=== PATIENT | female | born 1940 | race Caucasian/White ===

== ENCOUNTER 2018-06-23 18:02 | Inpatient (IN) | payer MEDICARE, MEDICAID ==
[~2018-06-23] VITALS: Ht 160 cm; Wt 91.2 kg
[2018-06-23] MEDS ORDERED: SODIUM CHLORIDE 0.9% 1,000 ML IV ONE (18:58)
[2018-06-23] MEDS ORDERED: ONDANSETRON HCL 4MG/2ML VIAL IV ONE (19:00)
[2018-06-23 19:55] LABS: CLARITY URINE CLEAR (CLEAR); COLOR URINE YELLOW (YELLOW); KETONES URINE NEGATIVE (NEGATIVE); LEUKOCYTE ESTERASE URINE TRACE (NEGATIVE); NITRITE URINE NEGATIVE (NEGATIVE); OCCULT BLOOD URINE NEGATIVE (NEGATIVE); PROTEIN URINE NEGATIVE (NEGATIVE); SPECIFIC GRAVITY URINE 1.008 (1.005-1.030); UROBILINOGEN URINE 0.2 E.U./dL (0.2-1.0)
[2018-06-23 19:56] LABS: BASOPHILS % 0.5 % (0.0-2.0); EOSINOPHILS % 0.2 % (0.0-5.0); HEMATOCRIT. 30.1 % (36.0-48.0); HEMOGLOBIN. 10.2 g/dL (12.0-16.0); LYMPHOCYTES % 23.3 % (20.0-50.0); MEAN CORPUSCULAR HEMOGLOBIN 32.6 pg (28.0-32.0); MEAN CORPUSCULAR VOLUME 95.9 fL (81.0-99.0); MEAN PLATELET VOLUME 8.3 fl (7.4-10.4); MONOCYTES % 10.5 % (2.0-8.0); NEUTROPHILS % 65.5 % (40.0-76.0); PLATELET 248 x1000/uL (130-400); RED BLOOD CELL COUNT 3.14 mill/uL (4.2-5.4); RED CELL DISTRIBUTION WIDTH 17.5 % (11.6-14.6)
[2018-06-23 20:01] LABS: CHLORIDE 90 mEq/L (98-107)
[2018-06-23 20:04] LABS: INR 1.2; PARTIAL THROMBOPLASTIN TIME 27.2 sec (23.4-31.0); PROTHROMBIN TIME 11.8 sec (9.1-11.1)
[2018-06-23] MEDS ORDERED: ASPIRIN 81MG TABLET PO ONE (20:30)
[2018-06-23] MEDS ORDERED: FUROSEMIDE 40MG/4ML VIAL IV ONE (20:30)
[2018-06-23] MEDS ORDERED: NITROGLYCERIN OINT 1GM/INCH UDPKT TD ONE (20:30)
[2018-06-23] MEDS ORDERED: DEXT 5%/0.45% NACL 1000ML 1,000 ML IV SCH (23:31)
[2018-06-23 23:40] VITALS: BP 105/62
[2018-06-23] MEDS ORDERED: ONDANSETRON HCL 4MG/2ML VIAL IV PRN (23:45)
[2018-06-23] MEDS ORDERED: DIPHENHYDRAMINE 50MG/ML VIAL IV PRN (23:45)
[2018-06-23] MEDS ORDERED: HYDROMORPHONE HCL/PF 2MG/ML CPJ IV PRN (23:45)
[2018-06-24] VITALS (8 sets, daily range): BP systolic 92–151; BP diastolic 48–89
[2018-06-24] MEDS: SODIUM CHLORIDE 0.9% 1,000 ML IV SCH ×2 (01:24→16:58)
[2018-06-24 06:42] LABS: BASOPHILS % 0.3 % (0.0-2.0); EOSINOPHILS % 0.4 % (0.0-5.0); HEMATOCRIT. 30.2 % (36.0-48.0); HEMOGLOBIN. 10.4 g/dL (12.0-16.0); LYMPHOCYTES % 20.1 % (20.0-50.0); MEAN CORPUSCULAR HEMOGLOBIN 33.1 pg (28.0-32.0); MEAN CORPUSCULAR VOLUME 96.6 fL (81.0-99.0); MEAN PLATELET VOLUME 8.5 fl (7.4-10.4); MONOCYTES % 13.1 % (2.0-8.0); NEUTROPHILS % 66.1 % (40.0-76.0); PLATELET 252 x1000/uL (130-400); RED BLOOD CELL COUNT 3.13 mill/uL (4.2-5.4); RED CELL DISTRIBUTION WIDTH 17.2 % (11.6-14.6)
[2018-06-24] MEDS ORDERED: LEVOFLOXACIN 500MG PREMIX 100 ML IV NR (07:00)
[2018-06-24 08:30] LABS: PHOSPHORUS 3.8 mg/dL (2.5-4.9)
[2018-06-24] MEDS ORDERED: ENOXAPARIN 40MG/0.4ML SYR SUBCUT SCH (09:00)
[2018-06-24] MEDS: ENOXAPARIN 30MG/0.3ML SYR SUBCUT SCH ×2 (09:00→21:51)
[2018-06-24] MEDS: ONDANSETRON HCL 4MG/2ML VIAL IV PRN ×2 (12:06→18:35)
[2018-06-24] MEDS ORDERED: METF-815 PO (16:18)
[2018-06-24] MEDS ORDERED: TRAM50TA3 PO (16:18)
[2018-06-24] MEDS ORDERED: FLUO90CA4 PO (16:18)
[2018-06-24] MEDS ORDERED: ATEN50TA PO (16:18)
[2018-06-24] MEDS ORDERED: METO5TAB2 PO (16:18)
[2018-06-24] MEDS ORDERED: GABA-531 PO (16:18)
[2018-06-24] MEDS ORDERED: ESOM40CA53 PO (16:18)
[2018-06-24] MEDS ORDERED: ACYC200C PO (16:18)
[2018-06-24] MEDS ORDERED: CHLO25TA2 PO (16:18)
[2018-06-24] MEDS ORDERED: PIOG30TA70 PO (16:18)
[2018-06-24] MEDS ORDERED: ACETAMINOPHEN 325MG TABLET PO PRN (17:15)
[2018-06-25] VITALS: BP 126/73
[2018-06-25 04:00] VITALS: BP 119/73
[2018-06-25] MEDS: LEVOFLOXACIN 250MG PREMIX 50 ML IV SCH (06:35)
[2018-06-25 08:00] VITALS: BP 131/62
[2018-06-25 09:23] LABS: HEMATOCRIT 31.1 % (36.0-48.0); HEMOGLOBIN 10.6 g/dL (12.0-16.0); MEAN CORPUSCULAR HEMOGLOBIN 32.9 pg (28.0-32.0); MEAN CORPUSCULAR VOLUME 96.4 fL (81.0-99.0); PLATELET 252 x1000/uL (130-400); RED BLOOD CELL COUNT 3.23 mill/uL (4.2-5.4); RED CELL DISTRIBUTION WIDTH 17.2 % (11.6-14.6)
[2018-06-25] MEDS: AMLODIPINE 5MG TABLET PO SCH (09:38)
[2018-06-25] MEDS: ENOXAPARIN 30MG/0.3ML SYR SUBCUT SCH ×2 (09:42→20:38)
[2018-06-25] MEDS: SODIUM CHLORIDE 0.9% 1,000 ML IV SCH (09:43)
[2018-06-25] MEDS ORDERED: DEXT 5%/0.9% NACL 1,000 ML IV SCH (11:15)
[2018-06-25 12:00] VITALS: BP 140/82
[2018-06-25 16:00] VITALS: BP 120/63
[2018-06-25] MEDS: MEGESTROL ACETATE 20MG TABLET PO SCH (18:31)
[2018-06-25 20:00] VITALS: BP 120/62
[2018-06-26] VITALS: BP 108/58
[2018-06-26 04:00] VITALS: BP 123/63
[2018-06-26] MEDS: LEVOFLOXACIN 250MG PREMIX 50 ML IV SCH (05:34)
[2018-06-26 08:00] VITALS: BP 133/68
[2018-06-26 09:06] LABS: HEMATOCRIT 28.3 % (36.0-48.0); HEMOGLOBIN 9.9 g/dL (12.0-16.0); MEAN CORPUSCULAR HEMOGLOBIN 33.6 pg (28.0-32.0); MEAN CORPUSCULAR VOLUME 96.2 fL (81.0-99.0); PLATELET 228 x1000/uL (130-400); RED BLOOD CELL COUNT 2.94 mill/uL (4.2-5.4); RED CELL DISTRIBUTION WIDTH 17.2 % (11.6-14.6)
[2018-06-26] MEDS: ENOXAPARIN 30MG/0.3ML SYR SUBCUT SCH ×2 (09:46→20:44)
[2018-06-26] MEDS: MEGESTROL ACETATE 20MG TABLET PO SCH ×3 (09:47→16:49)
[2018-06-26] MEDS: AMLODIPINE 5MG TABLET PO SCH (09:48)
[2018-06-26 12:00] VITALS: BP 125/62
[2018-06-26] MEDS ORDERED: POTASSIUM CHLORIDE 20MEQ TABLET SR PO NR (12:30)
[2018-06-26] MEDS ORDERED: NA PHOS,M-B/NA PHOS,DI-BA ENEMA 118ML PR NR (14:30)
[2018-06-26] MEDS: DOCUSATE SODIUM 250MG CAPSULE PO SCH (15:13)
[2018-06-26 16:00] VITALS: BP 107/62
[2018-06-26 20:00] VITALS: BP_SYST 116; BP_SYST 131; BP_DIAS 47
[2018-06-27] VITALS: BP 109/50
[2018-06-27 04:00] VITALS: BP 131/48
[2018-06-27] MEDS: LEVOFLOXACIN 250MG PREMIX 50 ML IV SCH (05:29)
[2018-06-27 08:20] LABS: HEMATOCRIT 32.1 % (36.0-48.0); HEMOGLOBIN 10.9 g/dL (12.0-16.0); MEAN CORPUSCULAR HEMOGLOBIN 32.4 pg (28.0-32.0); MEAN CORPUSCULAR VOLUME 95.6 fL (81.0-99.0); PLATELET 212 x1000/uL (130-400); RED BLOOD CELL COUNT 3.35 mill/uL (4.2-5.4); RED CELL DISTRIBUTION WIDTH 17.4 % (11.6-14.6)
[2018-06-27 08:30] VITALS: BP 163/55
[2018-06-27] MEDS: MEGESTROL ACETATE 20MG TABLET PO SCH ×3 (08:53→16:42)
[2018-06-27] MEDS: DOCUSATE SODIUM 250MG CAPSULE PO SCH (08:53)
[2018-06-27] MEDS: AMLODIPINE 5MG TABLET PO SCH (08:54)
[2018-06-27] MEDS: ENOXAPARIN 30MG/0.3ML SYR SUBCUT SCH ×2 (08:58→21:15)
[2018-06-27] MEDS: OMEPRAZOLE 20MG CAPSULE EXTENDED RELEASE PO SCH (10:04)
[2018-06-27 14:00] VITALS: BP 140/69
[2018-06-27] MEDS ORDERED: POTASSIUM CHLORIDE 20MEQ TABLET SR PO SCH (14:00)
[2018-06-27 16:00] VITALS: BP 137/64
[2018-06-27 16:12] LABS: AMMONIA 31 uMol/L (<32)
[2018-06-27 16:37] LABS: T4 FREE 1.39 ng/dL (0.76-1.46)
[2018-06-27 20:00] VITALS: BP 105/45
[2018-06-28] VITALS: BP 115/56
[2018-06-28] MEDS: LEVOFLOXACIN 250MG PREMIX 50 ML IV SCH (05:46)
[2018-06-28 06:00] VITALS: BP 114/64
[2018-06-28] MEDS: OMEPRAZOLE 20MG CAPSULE EXTENDED RELEASE PO SCH (06:03)
[2018-06-28 08:00] VITALS: BP 105/67
[2018-06-28] MEDS: ENOXAPARIN 30MG/0.3ML SYR SUBCUT SCH (08:17)
[2018-06-28] MEDS: DOCUSATE SODIUM 250MG CAPSULE PO SCH (08:17)
[2018-06-28] MEDS: AMLODIPINE 5MG TABLET PO SCH (08:17)
[2018-06-28] MEDS: MEGESTROL ACETATE 20MG TABLET PO SCH ×2 (08:17→13:00)
[2018-06-28 12:00] VITALS: BP 138/97
[2018-06-28 15:11] VITALS: BP 120/75
[2018-06-29] MEDS ORDERED: LEVOTHYROXINE SODIUM 75MCG TABLET PO SCH (06:45)
== END 2018-06-28 15:30 | DRG 682 ==
LOC: ER 21:02 → 5WST 21:34 → EDBEDREQTM 21:37 → EDBEDREQ 21:37 → ENRESERV 22:06
PROVIDERS: ADMIT Internal Medicine Nephrology; ATTEND Internal Medicine Nephrology
DX: N17.9 Acute kidney failure, unspecified (principal); G93.40 Encephalopathy, unspecified; J18.9 Pneumonia, unspecified organism; E87.1 Hypo-osmolality and hyponatremia; N39.0 Urinary tract infection, site not specified; K57.92 Diverticulitis of intestine, part unspecified, without perforation or abscess without bleeding; F03.90 Unspecified dementia, unspecified severity, without behavioral disturbance, psychotic disturbance, mood disturbance, and anxiety; E11.9 Type 2 diabetes mellitus without complications; E87.8 Other disorders of electrolyte and fluid balance, not elsewhere classified; E66.9 Obesity, unspecified; I11.0 Hypertensive heart disease with heart failure; D64.9 Anemia, unspecified; I50.9 Heart failure, unspecified; G13.0 Paraneoplastic neuromyopathy and neuropathy; R26.9 Unspecified abnormalities of gait and mobility; G73.7 Myopathy in diseases classified elsewhere; G31.9 Degenerative disease of nervous system, unspecified; E03.9 Hypothyroidism, unspecified; K59.00 Constipation, unspecified; Z90.49 Acquired absence of other specified parts of digestive tract; Z92.21 Personal history of antineoplastic chemotherapy; Z68.35 Body mass index [BMI] 35.0-35.9, adult; Z79.899 Other long term (current) drug therapy; Z79.84 Long term (current) use of oral hypoglycemic drugs; Z85.89 Personal history of malignant neoplasm of other organs and systems
CPT/HCPCS: 36415; 70450; 70551; 71045; 71250; 74176; 80048; 80053; 80061; 81003; 82140; 82550; 82570; 83735; 83880; 83930; 83935; 84100; 84145; 84300; 84439; 84443; 84481; 84484; 85025; 85027; 85610; 85730; 86850; 86900; 93005; 93306; 93970; 96374; 96375; 97110; 97162; 97530; 99285; J1170; J1650; J1940; J1956; J2405; J7030; J7042; J7050

== ENCOUNTER 2018-06-28 15:40 | Inpatient (IN) | payer MEDICARE, MEDICAID ==
[~2018-06-28] VITALS: Ht 160 cm; Wt 90.7 kg
[~2018-06-28 15:40] MED LIST: ACYC200C PO; ATEN50TA PO; CHLO25TA2 PO; ESOM40CA53 PO; FLUO90CA4 PO; GABA-531 PO; METF-815 PO; METO5TAB2 PO; PIOG30TA70 PO; TRAM50TA3 PO
[2018-06-28 16:00] VITALS: BP 136/79
[2018-06-28 18:09] VITALS: BP 136/79
[2018-06-28] MEDS ORDERED: HYDROMORPHONE HCL/PF 2MG/ML CPJ IM PRN (18:15)
[2018-06-28] MEDS ORDERED: ONDANSETRON HCL 4MG/2ML INJ IV PRN (18:15)
[2018-06-28] MEDS ORDERED: DIPHENHYDRAMINE 50MG/ML VIAL IV PRN (18:15)
[2018-06-28] MEDS ORDERED: ACETAMINOPHEN 650MG/20.3ML UDC PO PRN (18:15)
[2018-06-28] MEDS ORDERED: PNEUMOCOCCAL 23-VAL P-SAC VAC 0.5 ML IM ONE (18:45)
[2018-06-28 20:00] VITALS: BP 143/81
[2018-06-28] MEDS: ENOXAPARIN 30MG/0.3ML SYR SUBCUT SCH (21:09)
[2018-06-29] MEDS: LEVOFLOXACIN 250MG PREMIX 50 ML IV SCH (05:36)
[2018-06-29] MEDS: OMEPRAZOLE 20MG CAPSULE EXTENDED RELEASE PO SCH (06:03)
[2018-06-29] MEDS: LEVOTHYROXINE SODIUM 75MCG TABLET PO SCH (06:03)
[2018-06-29 07:31] LABS: BASOPHILS % 0.3 % (0.0-2.0); EOSINOPHILS % 0.4 % (0.0-5.0); LYMPHOCYTES % 15.4 % (20.0-50.0); MEAN CORPUSCULAR HEMOGLOBIN 32.9 pg (28.0-32.0); MEAN CORPUSCULAR VOLUME 95.6 fL (81.0-99.0); MEAN PLATELET VOLUME 8.7 fl (7.4-10.4); MONOCYTES % 11.6 % (2.0-8.0); NEUTROPHILS % 72.3 % (40.0-76.0); PLATELET 200 x1000/uL (130-400); RED BLOOD CELL COUNT 3.35 mill/uL (4.2-5.4); RED CELL DISTRIBUTION WIDTH 17.3 % (11.6-14.6)
[2018-06-29 07:38] LABS: CHLORIDE 92 mEq/L (98-107)
[2018-06-29 08:00] VITALS: BP 105/72
[2018-06-29] MEDS: MEGESTROL ACETATE 20MG TABLET PO SCH ×3 (08:33→17:48)
[2018-06-29] MEDS: DOCUSATE SODIUM 250MG CAPSULE PO SCH (08:33)
[2018-06-29] MEDS: ENOXAPARIN 30MG/0.3ML SYR SUBCUT SCH ×2 (08:33→21:07)
[2018-06-29] MEDS: AMLODIPINE 5MG TABLET PO SCH (08:34)
[2018-06-29] MEDS ORDERED: POTASSIUM CHLORIDE 20MEQ TABLET SR PO SCH (15:00)
[2018-06-29 20:00] VITALS: BP 111/64
[2018-06-30 00:31] LABS: CLARITY URINE CLEAR (CLEAR); COLOR URINE YELLOW (YELLOW); KETONES URINE NEGATIVE (NEGATIVE); LEUKOCYTE ESTERASE URINE 1+ (NEGATIVE); NITRITE URINE NEGATIVE (NEGATIVE); OCCULT BLOOD URINE NEGATIVE (NEGATIVE); PH URINE 6.5 (4.5-8.0); PROTEIN URINE NEGATIVE (NEGATIVE); SPECIFIC GRAVITY URINE 1.015 (1.005-1.030)
[2018-06-30] MEDS: LEVOFLOXACIN 250MG PREMIX 50 ML IV SCH (06:02)
[2018-06-30] MEDS: OMEPRAZOLE 20MG CAPSULE EXTENDED RELEASE PO SCH (06:02)
[2018-06-30] MEDS: LEVOTHYROXINE SODIUM 75MCG TABLET PO SCH (06:02)
[2018-06-30 08:00] VITALS: BP 134/76
[2018-06-30] MEDS: DOCUSATE SODIUM 250MG CAPSULE PO SCH (09:17)
[2018-06-30] MEDS: MEGESTROL ACETATE 20MG TABLET PO SCH ×3 (09:18→17:12)
[2018-06-30] MEDS: AMLODIPINE 5MG TABLET PO SCH (09:18)
[2018-06-30] MEDS: ENOXAPARIN 30MG/0.3ML SYR SUBCUT SCH ×2 (09:18→20:30)
[2018-06-30 19:49] VITALS: BP 118/62
[2018-06-30] MEDS: DEMECLOCYCLINE HCL 300MG TABLET PO SCH (22:34)
[2018-07-01] MEDS: LEVOFLOXACIN 250MG PREMIX 50 ML IV SCH (06:07)
[2018-07-01] MEDS: LEVOTHYROXINE SODIUM 75MCG TABLET PO SCH (06:07)
[2018-07-01] MEDS: DEMECLOCYCLINE HCL 300MG TABLET PO SCH ×3 (06:07→21:11)
[2018-07-01 07:04] LABS: BASOPHILS % 0.4 % (0.0-2.0); EOSINOPHILS % 1.2 % (0.0-5.0); HEMOGLOBIN. 11.4 g/dL (12.0-16.0); LYMPHOCYTES % 23.4 % (20.0-50.0); MEAN CORPUSCULAR HEMOGLOBIN 32.8 pg (28.0-32.0); MEAN PLATELET VOLUME 8.5 fl (7.4-10.4); MONOCYTES % 12.6 % (2.0-8.0); NEUTROPHILS % 62.4 % (40.0-76.0); PLATELET 207 x1000/uL (130-400); RED BLOOD CELL COUNT 3.48 mill/uL (4.2-5.4); RED CELL DISTRIBUTION WIDTH 17.3 % (11.6-14.6)
[2018-07-01 07:46] LABS: PHOSPHORUS 2.4 mg/dL (2.5-4.9)
[2018-07-01 07:50] LABS: FOLIC ACID (FOLATE) SERUM 9.6 ng/mL (>5.38)
[2018-07-01 08:00] VITALS: BP 120/60
[2018-07-01] MEDS: FAMOTIDINE 20MG TABLET PO SCH (08:40)
[2018-07-01] MEDS: MEGESTROL ACETATE 20MG TABLET PO SCH ×3 (08:41→17:51)
[2018-07-01] MEDS: AMLODIPINE 5MG TABLET PO SCH (08:41)
[2018-07-01] MEDS: DOCUSATE SODIUM 250MG CAPSULE PO SCH (08:41)
[2018-07-01] MEDS: ENOXAPARIN 30MG/0.3ML SYR SUBCUT SCH ×2 (08:42→21:11)
[2018-07-01] MEDS: POTASSIUM CHLORIDE 20MEQ TABLET SR PO SCH (13:07)
[2018-07-01 20:00] VITALS: BP 115/67
[2018-07-02] MEDS: SODIUM CHLORIDE 0.9% 1,000 ML IV SCH ×2 (00:02→15:19)
[2018-07-02] MEDS: DEMECLOCYCLINE HCL 300MG TABLET PO SCH ×3 (06:02→21:03)
[2018-07-02] MEDS: LEVOTHYROXINE SODIUM 50MCG TABLET PO SCH (06:14)
[2018-07-02] MEDS: MEGESTROL ACETATE 20MG TABLET PO SCH ×3 (08:40→17:20)
[2018-07-02] MEDS: AMLODIPINE 5MG TABLET PO SCH (08:41)
[2018-07-02] MEDS: DOCUSATE SODIUM 250MG CAPSULE PO SCH (08:42)
[2018-07-02] MEDS: POTASSIUM CHLORIDE 20MEQ TABLET SR PO SCH (08:42)
[2018-07-02] MEDS: LEVOFLOXACIN 250MG TABLET PO SCH (08:42)
[2018-07-02] MEDS: ENOXAPARIN 30MG/0.3ML SYR SUBCUT SCH ×2 (08:43→21:03)
[2018-07-02] MEDS: FAMOTIDINE 20MG TABLET PO SCH (08:43)
[2018-07-02 10:23] VITALS: BP 156/94
[2018-07-02] MEDS ORDERED: POTASSIUM-SODIUM PHOSPHATE POWDER PACKET PO NR (15:45)
[2018-07-02 20:00] VITALS: BP 99/52
[2018-07-03] MEDS: SODIUM CHLORIDE 0.9% 1,000 ML IV SCH (04:24)
[2018-07-03] MEDS: DEMECLOCYCLINE HCL 300MG TABLET PO SCH (05:42)
[2018-07-03] MEDS: LEVOTHYROXINE SODIUM 50MCG TABLET PO SCH (06:40)
[2018-07-03 07:02] LABS: BASOPHILS % 0.7 % (0.0-2.0); EOSINOPHILS % 1.1 % (0.0-5.0); HEMOGLOBIN. 10.6 g/dL (12.0-16.0); MEAN CORPUSCULAR HEMOGLOBIN 32.4 pg (28.0-32.0); MEAN CORPUSCULAR VOLUME 98.3 fL (81.0-99.0); MEAN PLATELET VOLUME 8.6 fl (7.4-10.4); MONOCYTES % 12.1 % (2.0-8.0); NEUTROPHILS % 65.1 % (40.0-76.0); PLATELET 183 x1000/uL (130-400); RED BLOOD CELL COUNT 3.26 mill/uL (4.2-5.4); RED CELL DISTRIBUTION WIDTH 17.5 % (11.6-14.6)
[2018-07-03 07:21] LABS: PHOSPHORUS 2.4 mg/dL (2.5-4.9)
[2018-07-03 08:00] VITALS: BP 121/70
[2018-07-03] MEDS: MEGESTROL ACETATE 20MG TABLET PO SCH ×3 (08:49→17:24)
[2018-07-03] MEDS: ENOXAPARIN 30MG/0.3ML SYR SUBCUT SCH ×2 (08:49→20:43)
[2018-07-03] MEDS: DOCUSATE SODIUM 250MG CAPSULE PO SCH (08:49)
[2018-07-03] MEDS: POTASSIUM CHLORIDE 20MEQ TABLET SR PO SCH (08:49)
[2018-07-03] MEDS: LEVOFLOXACIN 250MG TABLET PO SCH (08:50)
[2018-07-03] MEDS: FAMOTIDINE 20MG TABLET PO SCH (08:50)
[2018-07-03] MEDS: POTASSIUM-SODIUM PHOSPHATE POWDER PACKET PO SCH ×2 (11:58→17:24)
[2018-07-03 20:00] VITALS: BP 132/68
[2018-07-04] MEDS: LEVOTHYROXINE SODIUM 50MCG TABLET PO SCH (06:05)
[2018-07-04 08:00] VITALS: BP 139/73
[2018-07-04] MEDS: DOCUSATE SODIUM 250MG CAPSULE PO SCH (08:48)
[2018-07-04] MEDS: LEVOFLOXACIN 250MG TABLET PO SCH (08:48)
[2018-07-04] MEDS: MEGESTROL ACETATE 20MG TABLET PO SCH ×3 (08:48→18:23)
[2018-07-04] MEDS: POTASSIUM CHLORIDE 20MEQ TABLET SR PO SCH (08:48)
[2018-07-04] MEDS: POTASSIUM-SODIUM PHOSPHATE POWDER PACKET PO SCH ×2 (08:49→18:23)
[2018-07-04] MEDS: ENOXAPARIN 30MG/0.3ML SYR SUBCUT SCH ×2 (08:50→22:23)
[2018-07-04] MEDS: FAMOTIDINE 20MG TABLET PO SCH ×2 (13:08→22:22)
[2018-07-04 20:00] VITALS: BP 123/71
[2018-07-05 06:37] LABS: BASOPHILS % 0.7 % (0.0-2.0); HEMATOCRIT. 31.1 % (36.0-48.0); HEMOGLOBIN. 10.6 g/dL (12.0-16.0); LYMPHOCYTES % 24.9 % (20.0-50.0); MEAN CORPUSCULAR HEMOGLOBIN 32.9 pg (28.0-32.0); MEAN CORPUSCULAR VOLUME 96.3 fL (81.0-99.0); MEAN PLATELET VOLUME 8.9 fl (7.4-10.4); MONOCYTES % 12.2 % (2.0-8.0); NEUTROPHILS % 60.2 % (40.0-76.0); PLATELET 198 x1000/uL (130-400); RED BLOOD CELL COUNT 3.22 mill/uL (4.2-5.4); RED CELL DISTRIBUTION WIDTH 17.4 % (11.6-14.6)
[2018-07-05] MEDS: LEVOTHYROXINE SODIUM 50MCG TABLET PO SCH (06:39)
[2018-07-05 06:49] LABS: CHLORIDE 104 mEq/L (98-107)
[2018-07-05 07:06] LABS: PHOSPHORUS 3.3 mg/dL (2.5-4.9)
[2018-07-05 08:00] VITALS: BP 181/71
[2018-07-05] MEDS: FAMOTIDINE 20MG TABLET PO SCH (09:42)
[2018-07-05] MEDS: POTASSIUM CHLORIDE 20MEQ TABLET SR PO SCH (09:42)
[2018-07-05] MEDS: DOCUSATE SODIUM 250MG CAPSULE PO SCH (09:42)
[2018-07-05] MEDS: MEGESTROL ACETATE 20MG TABLET PO SCH ×3 (09:42→17:32)
[2018-07-05] MEDS: ENOXAPARIN 30MG/0.3ML SYR SUBCUT SCH ×2 (09:44→21:21)
[2018-07-05] MEDS: LEVOFLOXACIN 250MG TABLET PO SCH (09:46)
[2018-07-05 09:49] VITALS: BP 135/90
[2018-07-05 13:08] LABS: 25-HYDROXY VITAMIN D3 76 ng/mL (.)
[2018-07-05] MEDS ORDERED: ONDANSETRON HCL 4MG TABLET PO PRN (15:00)
[2018-07-05] MEDS ORDERED: DIPHENHYDRAMINE 12.5MG/5ML UDC PO PRN (15:00)
[2018-07-05 20:00] VITALS: BP 135/81
[2018-07-06] MEDS: LEVOTHYROXINE SODIUM 50MCG TABLET PO SCH (06:08)
[2018-07-06 08:00] VITALS: BP 134/79
[2018-07-06] MEDS: POTASSIUM CHLORIDE 20MEQ TABLET SR PO SCH (09:40)
[2018-07-06] MEDS: LEVOFLOXACIN 250MG TABLET PO SCH (09:40)
[2018-07-06] MEDS: MEGESTROL ACETATE 20MG TABLET PO SCH ×3 (09:40→18:20)
[2018-07-06] MEDS: DOCUSATE SODIUM 250MG CAPSULE PO SCH (09:40)
[2018-07-06] MEDS: FAMOTIDINE 20MG TABLET PO SCH (09:40)
[2018-07-06] MEDS: ENOXAPARIN 30MG/0.3ML SYR SUBCUT SCH ×2 (09:41→21:56)
[2018-07-06 20:00] VITALS: BP 127/77
[2018-07-07] MEDS: LEVOTHYROXINE SODIUM 50MCG TABLET PO SCH (06:31)
[2018-07-07 06:46] LABS: BASOPHILS % 0.8 % (0.0-2.0); EOSINOPHILS % 2.4 % (0.0-5.0); HEMATOCRIT. 33.8 % (36.0-48.0); HEMOGLOBIN. 11.3 g/dL (12.0-16.0); LYMPHOCYTES % 26.3 % (20.0-50.0); MEAN CORPUSCULAR HEMOGLOBIN 32.1 pg (28.0-32.0); MEAN CORPUSCULAR VOLUME 96.4 fL (81.0-99.0); MEAN PLATELET VOLUME 8.1 fl (7.4-10.4); MONOCYTES % 12.4 % (2.0-8.0); NEUTROPHILS % 58.1 % (40.0-76.0); PLATELET 209 x1000/uL (130-400); RED CELL DISTRIBUTION WIDTH 17.9 % (11.6-14.6)
[2018-07-07 06:54] LABS: CHLORIDE 105 mEq/L (98-107)
[2018-07-07 07:09] LABS: PHOSPHORUS 3.9 mg/dL (2.5-4.9)
[2018-07-07 08:00] VITALS: BP 121/77
[2018-07-07] MEDS: ENOXAPARIN 30MG/0.3ML SYR SUBCUT SCH ×2 (09:23→22:28)
[2018-07-07] MEDS: MEGESTROL ACETATE 20MG TABLET PO SCH ×3 (09:23→18:40)
[2018-07-07] MEDS: DOCUSATE SODIUM 250MG CAPSULE PO SCH (09:23)
[2018-07-07] MEDS: POTASSIUM CHLORIDE 20MEQ TABLET SR PO SCH (09:23)
[2018-07-07] MEDS: FAMOTIDINE 20MG TABLET PO SCH (09:24)
[2018-07-07 20:00] VITALS: BP 134/77
[2018-07-08] MEDS: LEVOTHYROXINE SODIUM 50MCG TABLET PO SCH (06:11)
[2018-07-08] MEDS: ENOXAPARIN 30MG/0.3ML SYR SUBCUT SCH ×2 (08:56→21:02)
[2018-07-08] MEDS: MEGESTROL ACETATE 20MG TABLET PO SCH ×3 (08:56→18:04)
[2018-07-08] MEDS: DOCUSATE SODIUM 250MG CAPSULE PO SCH (08:57)
[2018-07-08] MEDS: POTASSIUM CHLORIDE 20MEQ TABLET SR PO SCH (08:57)
[2018-07-08] MEDS: FAMOTIDINE 20MG TABLET PO SCH (08:57)
[2018-07-08 20:00] VITALS: BP 135/72
[2018-07-09] MEDS: LEVOTHYROXINE SODIUM 50MCG TABLET PO SCH (06:13)
[2018-07-09 06:33] LABS: BASOPHILS % 0.6 % (0.0-2.0); EOSINOPHILS % 2.4 % (0.0-5.0); HEMATOCRIT. 33.1 % (36.0-48.0); HEMOGLOBIN. 11.4 g/dL (12.0-16.0); LYMPHOCYTES % 25.1 % (20.0-50.0); MEAN CORPUSCULAR HEMOGLOBIN 32.9 pg (28.0-32.0); MEAN CORPUSCULAR VOLUME 95.5 fL (81.0-99.0); MEAN PLATELET VOLUME 7.8 fl (7.4-10.4); MONOCYTES % 10.1 % (2.0-8.0); NEUTROPHILS % 61.8 % (40.0-76.0); PLATELET 204 x1000/uL (130-400); RED BLOOD CELL COUNT 3.46 mill/uL (4.2-5.4); RED CELL DISTRIBUTION WIDTH 17.6 % (11.6-14.6)
[2018-07-09] MEDS: FAMOTIDINE 20MG TABLET PO SCH (09:31)
[2018-07-09] MEDS: MEGESTROL ACETATE 20MG TABLET PO SCH ×2 (09:31→12:32)
[2018-07-09] MEDS: DOCUSATE SODIUM 250MG CAPSULE PO SCH (09:32)
[2018-07-09] MEDS: ENOXAPARIN 30MG/0.3ML SYR SUBCUT SCH (09:32)
[2018-07-09] MEDS: POTASSIUM CHLORIDE 20MEQ TABLET SR PO SCH (09:32)
[2018-07-09 10:48] VITALS: BP 94/61
== END 2018-07-09 14:30 | disposition home health service (06) | DRG 70 ==
PROVIDERS: ADMIT Physical Medicine & Rehabilitation Spinal Cord Injury Medicine; ATTEND Internal Medicine Nephrology
DX: G93.40 Encephalopathy, unspecified (principal); J18.9 Pneumonia, unspecified organism; E43 Unspecified severe protein-calorie malnutrition; I13.0 Hypertensive heart and chronic kidney disease with heart failure and stage 1 through stage 4 chronic kidney disease, or unspecified chronic kidney disease; I50.30 Unspecified diastolic (congestive) heart failure; E87.1 Hypo-osmolality and hyponatremia; N39.0 Urinary tract infection, site not specified; N17.9 Acute kidney failure, unspecified; D64.9 Anemia, unspecified; E03.9 Hypothyroidism, unspecified; E11.22 Type 2 diabetes mellitus with diabetic chronic kidney disease; E87.6 Hypokalemia; F03.90 Unspecified dementia, unspecified severity, without behavioral disturbance, psychotic disturbance, mood disturbance, and anxiety; K57.90 Diverticulosis of intestine, part unspecified, without perforation or abscess without bleeding; K59.00 Constipation, unspecified; N18.9 Chronic kidney disease, unspecified; R62.7 Adult failure to thrive; Z90.49 Acquired absence of other specified parts of digestive tract; F09 Unspecified mental disorder due to known physiological condition; F39 Unspecified mood [affective] disorder; R53.81 Other malaise; E66.01 Morbid (severe) obesity due to excess calories; M19.90 Unspecified osteoarthritis, unspecified site; Z68.35 Body mass index [BMI] 35.0-35.9, adult
CPT/HCPCS: 36415; 80048; 80053; 80061; 81003; 82306; 82607; 82728; 82746; 83036; 83540; 83550; 83735; 83930; 83935; 84100; 84134; 84443; 84630; 85025; 87086; 90732; 92523; 92610; 93970; 97110; 97116; 97162; 97166; 97530; 97535; C1893; G0515; J1650; J1956; J7030; J7050